=== PATIENT | female | born 1975 | race Caucasian/White ===

== ENCOUNTER 2017-05-27 12:50 | Emergency (ER) | payer MEDICAID ==
[2017-05-27 13:04] LABS: URINE HCG POC HCG NEGATIVE (Negative)
[2017-05-27 13:11] LABS: ADD MAN DIFF? NO
[2017-05-27 13:15] LABS: BASO % 0 % (0-3); EOS % 1 % (0-3); HEMATOCRIT 41.5 % (36.0-47.0); HEMOGLOBIN 14.2 g/dL (12.0-15.5); LYMPH % 18 % (24-48); MEAN CORPUSCULAR HEMOGLOBIN 33 pg (25-35); MEAN CORPUSCULAR HGB CONC 34 g/dL (31-37); MEAN CORPUSCULAR VOLUME 96 fL (79-100); MONO # 0.5 x10^3/uL (0.0-1.1); MONO % 9 % (0-9); NEUT # 4.3 x10^3uL (1.8-7.7); NEUT % 73 % (31-73); PLATELET COUNT 164 x10^3/uL (140-400); RED BLOOD COUNT 4.33 x10^6/uL (3.50-5.40); RED CELL DISTRIBUTION WIDTH 12.5 % (11.5-14.5); WHITE BLOOD COUNT 5.9 x10^3/uL (4.0-11.0)
[2017-05-27 13:18] LABS: BILIRUBIN,URINE SMALL (NEG); CLARITY,URINE CLEAR; COLOR,URINE YELLOW; GLUCOSE,URINE NEGATIVE (NEG); NITRITE,URINE NEGATIVE (NEG); PROTEIN,URINE 30 mg/dL (NEG-TRACE); UROBILINOGEN,URINE 0.2 mg/dL (0.2 mg/dL)
[2017-05-27 13:25] LABS: ANION GAP 8 (6-14); BLOOD UREA NITROGEN 18 mg/dL (7-20); BUN/CREATININE RATIO 23 (6-20); CALCIUM 9.1 mg/dL (8.5-10.1); CARBON DIOXIDE 25 mmol/L (21-32); CHLORIDE 104 mmol/L (98-107); CREATININE 0.8 mg/dL (0.6-1.0); GFR 79.9; GLUCOSE 102 mg/dL (70-99); POTASSIUM 3.5 mmol/L (3.5-5.1); SODIUM 137 mmol/L (136-145)
[2017-05-27 13:31] LABS: ALBUMIN 3.9 g/dL (3.4-5.0); ALK PHOS 114 U/L (46-116); ALT (SGPT) 24 U/L (14-59); AST (SGOT) 24 U/L (15-37); LIPASE 90 U/L (73-393); TOTAL BILIRUBIN 1.1 mg/dL (0.2-1.0); TOTAL PROTEIN 7.7 g/dL (6.4-8.2)
[2017-05-27 13:36] LABS: BACTERIA,URINE FEW /HPF (0-FEW); RBC,URINE 0 /HPF (0-2); SQUAMOUS EPITHELIAL CELL,UR MOD /LPF
[2017-05-27] MEDS: IV NORMAL SALINE 1000ML BAG 1,000 ML IV ×2 (13:47)
[2017-05-27] MEDS: DICYCLOMINE 20 MG/2 ML AMPUL. IM ×2 (13:48)
[2017-05-27] MEDS: ONDANSETRON PF 4 MG/2 ML VIAL. IV ×2 (13:48)
[2017-05-27] MEDS: fentaNYL PF VIAL 100 MCG/2 ML VIAL IV ×2 (13:49)
[2017-05-27 13:58] LABS: INFLUENZA A PATIENT NEGATIVE (NEGATIVE); INFLUENZA B PATIENT NEGATIVE (NEGATIVE); OBC FLU VALID
== END 2017-05-27 14:32 | disposition home or self-care (01) ==
LOC: ER 12:50
DX: R10.84 Generalized abdominal pain (principal); R10.13 Epigastric pain; E86.0 Dehydration; R11.10 Vomiting, unspecified; R19.7 Diarrhea, unspecified; F41.9 Anxiety disorder, unspecified; Z90.49 Acquired absence of other specified parts of digestive tract
CPT/HCPCS: 36415; 80053; 81001; 81025; 83690; 85025; 87804; 87804-59; 96361; 96372; 96374; 96375; 99284-25; J0500; J2405; J3010; J7030

== ENCOUNTER 2017-09-21 14:28 | Emergency (ER) | payer BC, MEDICAID ==
[2017-09-21] MEDS: DEXAMETHASONE SOD PHOS 20 MG/5 ML VIAL. IM (15:31)
[2017-09-21] MEDS: KETOROLAC 60 MG/2 ML INJ. IM (15:32)
== END 2017-09-21 15:58 | disposition home or self-care (01) ==
LOC: ER 15:58
DX: G43.701 Chronic migraine without aura, not intractable, with status migrainosus (principal); F41.9 Anxiety disorder, unspecified
CPT/HCPCS: 96372; 99284; J1100; J1885

== ENCOUNTER 2017-10-16 07:32 | Emergency (ER) | payer BC ==
[2017-10-16 11:44] LABS: NEGATIVE OBC STREP NEG; POSITIVE OBC STREP POS
== END 2017-10-16 08:23 | disposition home or self-care (01) ==
LOC: ER 07:32
DX: J02.8 Acute pharyngitis due to other specified organisms (principal); F41.9 Anxiety disorder, unspecified; G43.909 Migraine, unspecified, not intractable, without status migrainosus
CPT/HCPCS: 87070; 87880; 99283

== ENCOUNTER 2018-01-18 21:37 | Emergency (ER) | payer BC ==
[~2018-01-18] VITALS: Ht 167.6 cm; Wt 68.0 kg
[~2018-01-18 21:37] MED LIST: CITA20TA9 PO; HYDR-971 PO; ONDA4TAB10 SL; ONDA8TAB12 PO; TRAM50TA PO
[2018-01-19] MEDS ORDERED: predniSONE 20 MG TABLET PO ONE (00:30)
[2018-01-19] MEDS ORDERED: ALBUTEROL SULFATE 2.5 MG/3 ML NEBU. NEB ONE (00:30)
[2018-01-19] MEDS ORDERED: PROAIR HFA8.5 GM INH (01:33)
[2018-01-19] MEDS ORDERED: PRED50TA PO (01:33)
[2018-01-19] MEDS ORDERED: AZIT250T6 PO (01:33)
[2018-01-19] MEDS ORDERED: BENZ100C PO (01:33)
--- NOTE | 2018-01-19 01:33 | PHYS DOC ---
Past Medical History Past Medical History: Anxiety, Cancer, Migraines, Other Additional Past Medical Histor: salivary gland stone Past Surgical History: Appendectomy, Other Additional Past Surgical Histo: right leg cancer sx; salivary gland stone removal Alcohol Use: None Drug Use: None Adult General Chief Complaint Chief Complaint: COUGH HPI HPI Patient is a 42 year old female who presents with a cough for one week. Smoker. seen with daughter Review of Systems Review of Systems Constitutional: Denies fever or chills [] Eyes: Denies change in visual acuity, redness, or eye pain [] HENT: Denies nasal congestion or sore throat [] Respiratory: Denies cough or shortness of breath [] Cardiovascular: No additional information not addressed in HPI [] GI: Denies abdominal pain, nausea, vomiting, bloody stools or diarrhea [] : Denies dysuria or hematuria [] Musculoskeletal: Denies back pain or joint pain [] Integument: Denies rash or skin lesions [] Neurologic: Denies headache, focal weakness or sensory changes [] Endocrine: Denies polyuria or polydipsia [] All other systems were reviewed and found to be within normal limits, except as documented in this note. Current Medications Current Medications Current Medications Medications (Trade) Dose Ordered Sig/Damion Start Time Stop Time Status Last Admin Dose Admin Albuterol Sulfate (Ventolin Neb Soln) 2.5 mg 1X ONCE 01/19/18 00:30 01/19/18 00:31 DC 01/19/18 00:30 2.5 MG Prednisone (Prednisone) 50 mg 1X ONCE 01/19/18 00:30 01/19/18 00:31 DC 01/19/18 00:52 50 MG Allergies Allergies Allergies Coded Allergies Type Severity Reaction Last Updated Verified No Known Drug Allergies 05/27/17 No Physical Exam Physical Exam Constitutional: Well developed, well nourished, no acute distress, non-toxic appearance. [] HENT: Normocephalic, atraumatic, bilateral external ears normal, oropharynx moist, no oral exudates, nose normal. [] Eyes: PERRLA, EOMI, conjunctiva normal, no discharge. [] Neck: Normal range of motion, no tenderness, supple, no stridor. [] Cardiovascular:Heart rate regular rhythm, no murmur [] Lungs & Thorax: Bilateral breath sounds clear to auscultation [] Abdomen: Bowel sounds normal, soft, no tenderness, no masses, no pulsatile masses. [] Skin: Warm, dry, no erythema, no rash. [] Back: No tenderness, no CVA tenderness. [] Extremities: No tenderness, no cyanosis, no clubbing, ROM intact, no edema. [] Neurologic: Alert and oriented X 3, normal motor function, normal sensory function, no focal deficits noted. [] Psychologic: Affect normal, judgement normal, mood normal. [] EKG EKG [] Radiology/Procedures Radiology/Procedures [] Course & Med Decision Making Course & Med Decision Making Pertinent Labs and Imaging studies reviewed. (See chart for details) [] Dragon Disclaimer Dragon Disclaimer This electronic medical record was generated, in whole or in part, using a voice recognition dictation system. Departure Departure Impression: Primary Impression: Bronchitis Disposition: HOME, SELF-CARE Condition: STABLE Referrals: NO PCP (PCP) Patient Instructions: Acute Bronchitis, [id number] Additional Instructions: Take medications as prescribed. Follow up with primary in 1-2 days. Return if problems or concerns. Scripts Albuterol Sulfate (PROAIR HFA INHALER) 8.5 Gm Hfa.aer.ad 1 PUFF INH PRN Q6HRS PRN for SHORTNESS OF BREATH, #1 INHALER 0 Refills Prov: JEAN FLORES APRN 01/19/18 Prednisone (PREDNISONE) 50 Mg Tablet 50 MG PO DAILY for 5 Days, #5 TAB Prov: JEAN FLORES APRN 01/19/18 Benzonatate (TESSALON PERLE) 100 Mg Capsule 100 MG PO TID PRN for COUGH, #20 CAP Prov: JEAN FLORES APRN 01/19/18 Azithromycin (AZITHROMYCIN TABLET) 250 Mg Tablet 1 PKG PO UD, #6 TAB Prov: JEAN FLORES APRN 01/19/18 JEAN FLORES APRN Jan 19, 2018 01:33
[2018-01-19 01:50] VITALS: BP 103/64
--- NOTE | 2018-01-19 06:52 | RAD ---
Chest, PA and Lateral: Technique: PA and lateral views of the chest were obtained. History: Shortness of breath. Comparison: None. Findings: The heart and pulmonary vasculature appear within normal limits. The lungs are clear. The pleural margins are clear. Impression: No acute chest process is seen. Electronically signed by: Jonnathan Turcios MD (01/19/2018 6:48 AM) [id number]
== END 2018-01-19 02:00 | disposition home or self-care (01) ==
LOC: ER 21:37
DX: J40 Bronchitis, not specified as acute or chronic (principal); F41.9 Anxiety disorder, unspecified; G43.909 Migraine, unspecified, not intractable, without status migrainosus; F17.200 Nicotine dependence, unspecified, uncomplicated; Z90.89 Acquired absence of other organs
CPT/HCPCS: 71046; 94640; 99284; J7512; J7613

== ENCOUNTER 2018-02-24 08:24 | Emergency (ER) | payer BC ==
[~2018-02-24] VITALS: Ht 162.6 cm; Wt 71.2 kg
[~2018-02-24 08:24] MED LIST changes: +AZIT250T6 PO; +BENZ100C PO; +PRED50TA PO; +PROAIR HFA8.5 GM INH
[2018-02-24 08:31] VITALS: BP 112/67
--- NOTE | 2018-02-24 08:42 | PHYS DOC ---
Past Medical History Past Medical History: Anxiety, Migraines Additional Past Medical Histor: salivary gland stone, LY'S SARCOMA WITH CHEMO, RADIATION, AND TUMOR DANNA Additional Past Surgical Histo: right ankle cancer sx; salivary gland stone removal Smoking: Quit Greater Than 1 Year Alcohol Use: None Drug Use: None Adult General Chief Complaint Chief Complaint: COUGH HPI HPI Patient is a 42-year-old female presents to the emergency department for evaluation. She states that for the past 4 days she has had nasal congestion, and a cough productive of yellow sputum, with some dark specks. She has not had any hemoptysis. She denies any significant shortness of breath. She does report some myalgias and had some fever over the past few days. She reports some intermittent left ear pain, not currently present. She denies any sore throat. She has not had any abdominal pain, nausea, vomiting. She does report some myalgias. She states she had bronchitis in January and was treated with prednisone and a Z-Tony. There are no alleviating or exacerbating factors to her symptoms. Review of Systems Review of Systems Constitutional: Denies lethargy, or recent weight loss. Reports subjective fevers [] Eyes: Denies change in visual acuity, redness, or eye pain [] HENT: Denies sore throat. Denies nasal congestion [] Respiratory: Denies pleuritic pain or shortness of breath [] Cardiovascular: The patient denies any shortness of breath, chest pain, palpitations, or orthopnea [] GI: Denies abdominal pain, nausea, vomiting, bloody stools or diarrhea [] : Denies dysuria or hematuria [] Musculoskeletal: Denies joint pain. Does report myalgias.[] Integument: Denies rash or skin lesions [] Neurologic: Denies headache, focal weakness or sensory changes [] Endocrine: Denies polyuria or polydipsia [] All other systems were reviewed and found to be within normal limits, except as documented in this note. Allergies Allergies Allergies Coded Allergies Type Severity Reaction Last Updated Verified No Known Drug Allergies 05/27/17 No Physical Exam Physical Exam PHYSICAL EXAM: CONSTITUTIONAL: Well developed, well nourished with the patient is nontoxic- appearing. HEAD: normocephalic, atraumatic EENT: PERRL, EOMI. Conjunctivae normal color, sclerae non-icteric; moist mucous membranes. Nasal congestion is present. The oropharynx is nonerythematous. Tympanic membranes are normal bilaterally. NECK: Supple, non-tender; no meningismus. LUNGS: Lungs CTA, breathing even and unlabored. Normal air movement. There are no rales, wheezing, or rhonchi. HEART: Regular rate and rhythm, no murmur CHEST: No deformity; non-tender ABDOMEN: The abdomen is soft, and non-tender, no masses or bruits. EXTREM: Normal ROM; no deformity, no calf tenderness. Normal pulses palpable in all extremities. There is no pedal edema. SKIN: No rash; no diaphoresis NEURO: Alert; normal speech and cognition; CN's grossly intact; strength grossly intact without focal deficit. BACK: No CVA TTP. Current Patient Data Vital Signs Vital Signs Date Time Temp Pulse Resp B/P (MAP) Pulse Ox O2 Delivery O2 Flow Rate FiO2 02/24/18 08:31 99.2 78 20 112/67 (82) 99 Room Air 99.2 Lab Values Laboratory Tests Test 02/24/18 08:46 Influenza Type A Antigen Negative (NEGATIVE) Influenza Type B Antigen Negative (NEGATIVE) EKG EKG [] Radiology/Procedures Radiology/Procedures [PROCEDURE: CHEST PA & LATERAL PA and lateral chest radiographs 02/24/2018 CLINICAL HISTORY: Cough since mid January. Bronchitis. Increasing congestion. PA and lateral digital radiographs of the chest were obtained. Comparison study is dated 01/19/2018. The cardiac and mediastinal silhouettes are within normal limits in size and configuration. No acute pulmonary infiltrate is seen. No pleural effusion or pneumothorax is noted. The osseous structures are unchanged. IMPRESSION: No acute abnormality is seen.] Course & Med Decision Making Course & Med Decision Making Pertinent Labs and Imaging studies reviewed. (See chart for details) [] Dragon Disclaimer Dragon Disclaimer This electronic medical record was generated, in whole or in part, using a voice recognition dictation system. Departure Departure Impression: Primary Impression: Upper respiratory infection Disposition: HOME, SELF-CARE Condition: STABLE Referrals: NO PCP (PCP) Patient Instructions: Cough, Adult, Upper Respiratory Infection, Adult Scripts Benzonatate (TESSALON PERLE) 100 Mg Capsule 200 MG PO TID PRN for COUGH, #30 CAP Prov: FRANKIE SANCHEZ MD 02/24/18 FRANKIE SANCHEZ MD Feb 24, 2018 08:42
--- NOTE | 2018-02-24 08:51 | RAD ---
PA and lateral chest radiographs 02/24/2018 CLINICAL HISTORY: Cough since mid January. Bronchitis. Increasing congestion. PA and lateral digital radiographs of the chest were obtained. Comparison study is dated 01/19/2018. The cardiac and mediastinal silhouettes are within normal limits in size and configuration. No acute pulmonary infiltrate is seen. No pleural effusion or pneumothorax is noted. The osseous structures are unchanged. IMPRESSION: No acute abnormality is seen. Electronically signed by: Adolph Brown MD (02/24/2018 8:48 AM) [id number]
[2018-02-24 09:11] LABS: INFLUENZA A PATIENT NEGATIVE (NEGATIVE); INFLUENZA B PATIENT NEGATIVE (NEGATIVE)
[2018-02-24] MEDS ORDERED: BENZ100C PO (09:21)
== END 2018-02-24 09:26 | disposition home or self-care (01) ==
LOC: ER 08:24
DX: J06.9 Acute upper respiratory infection, unspecified (principal); F41.9 Anxiety disorder, unspecified; G43.909 Migraine, unspecified, not intractable, without status migrainosus; Z87.891 Personal history of nicotine dependence; H92.02 Otalgia, left ear
CPT/HCPCS: 71046; 87804; 99285-25